=== PATIENT | male | born 1990 | race Caucasian/White ===

== ENCOUNTER → 2019-04-22 08:12 | Outpatient (CLI) | payer OTHER, SELFPAY ==
[2019-04-22 13:04] LABS: Cholesterol 224 mg/dL (200); Glucose 93 mg/dL (74-106); High Density Lipoprotein 41 mg/dL; Thyroid Stim Hormone (TSH) 1.93 uIU/mL (0.358-3.74); Triglycerides 216 mg/dL; Very Low Density Lipoprotein 43 mg/dL (5-40)
== END ==
PROVIDERS: Family Provider Family Medicine; PCP Family Medicine; Visit Provider Family Medicine
DX: E78.5 Hyperlipidemia, unspecified (principal); Z13.1 Encounter for screening for diabetes mellitus; Z82.49 Family history of ischemic heart disease and other diseases of the circulatory system
CPT/HCPCS: 36415; 80061; 82947; 84443